=== PATIENT | female | born 1950 | race African-American/Black ===

== ENCOUNTER → 2016-12-10 | Outpatient (CLI) | payer MEDICARE, MEDICAID ==
[~2016-12-10] MED LIST: ASPI-518 PO; CLON0.1T; CLON0.1T PO; CLOP75TA2 PO; FAMO20TA96 PO; FURO-151 PO; LISI40TA4 PO; METO50TA95 PO; POTA20TA82 PO
== END | disposition home or self-care (01) ==
LOC: MAMMO 09:30
PROVIDERS: ATTEND Internal Medicine Nephrology
DX: Z12.31 Encounter for screening mammogram for malignant neoplasm of breast (principal)
CPT/HCPCS: G0202

== ENCOUNTER → 2017-12-13 | Outpatient (CLI) | payer MEDICARE, MEDICAID ==
[~2017-12-13] MED LIST changes: +CLOP75TA16 PO; -CLOP75TA2 PO; +FAMO-135 PO; -FAMO20TA96 PO
== END | disposition home or self-care (01) ==
LOC: RAD 08:18
PROVIDERS: ATTEND Internal Medicine Nephrology
DX: Z12.31 Encounter for screening mammogram for malignant neoplasm of breast (principal)
CPT/HCPCS: 77067

== ENCOUNTER → 2019-01-09 | Outpatient (CLI) | payer MEDICARE, MEDICAID ==
[~2019-01-09] MED LIST changes: -CLOP75TA16 PO; +CLOP75TA4 PO
== END | disposition home or self-care (01) ==
LOC: MAMMO 09:18
PROVIDERS: ATTEND Internal Medicine Nephrology
DX: Z12.31 Encounter for screening mammogram for malignant neoplasm of breast (principal)
CPT/HCPCS: 77067

== ENCOUNTER 2019-08-27 15:20 | Inpatient (IN) | payer MEDICARE, MEDICAID ==
[~2019-08-27] VITALS: Ht 167.6 cm; Wt 79.4 kg
[2019-08-27] MEDS ORDERED: MORPHINE SULFATE 4 MG/ML CPJ (NOT FOR IM USE) IV ONE (16:15)
[2019-08-27] MEDS ORDERED: ONDANSETRON HCL 4MG/2ML INJ IV ONE (16:15)
[2019-08-27 16:28] LABS: HEMATOCRIT. 33.4 % (36.0-48.0); HEMOGLOBIN. 10.9 g/dL (12.0-16.0); MEAN CORPUSCULAR HEMOGLOBIN 25.7 pg (28.0-32.0); MEAN CORPUSCULAR VOLUME 78.9 fL (81.0-99.0); MEAN PLATELET VOLUME 7.9 fl (7.4-10.4); PLATELET 345 x1000/uL (130-400); RED BLOOD CELL COUNT 4.23 mill/uL (4.2-5.4); RED CELL DISTRIBUTION WIDTH 14.4 % (11.6-14.6)
[2019-08-27 16:34] LABS: CHLORIDE 106 mEq/L (98-107)
[2019-08-27 16:37] LABS: INR 1.1; PROTHROMBIN TIME 11.9 sec (9.6-11.0)
[2019-08-27 17:07] LABS: CLARITY URINE CLOUDY (CLEAR); COLOR URINE DARK YELLOW (YELLOW); KETONES URINE TRACE (NEGATIVE); LEUKOCYTE ESTERASE URINE 2+ (NEGATIVE); NITRITE URINE NEGATIVE (NEGATIVE); OCCULT BLOOD URINE NEGATIVE (NEGATIVE); PH URINE 5.5 (4.5-8.0); PROTEIN URINE 1+ (NEGATIVE); SPECIFIC GRAVITY URINE 1.015 (1.005-1.030)
[2019-08-27 17:17] LABS: PLATELET ESTIMATE NORMAL
[2019-08-27] MEDS ORDERED: SODIUM CHLORIDE 0.9% 1,000 ML IV ONE (20:45)
[2019-08-27] MEDS ORDERED: PIPERACILLIN/TAZ 3.375G PREMIX 50 ML IV ONE (20:45)
[2019-08-27] MEDS ORDERED: SODIUM CHLORIDE 0.9% 500 ML IV ONE (20:45)
[2019-08-27] MEDS ORDERED: LORAZEPAM 2MG/ML CPJ IV PRN (23:30)
[2019-08-27] MEDS ORDERED: ONDANSETRON HCL 4MG/2ML INJ IV PRN (23:30)
[2019-08-27] MEDS ORDERED: ACETAMINOPHEN 650MG/20.3ML UDC GT PRN (23:30)
[2019-08-27] MEDS ORDERED: IPRATROPIUM/ALBUTEROL 0.5-3(2.5)MG/3ML NEB NEB PRN (23:30)
[2019-08-27] MEDS ORDERED: POTASSIUM CHLORIDE 20MEQ TABLET SR PO SCH (23:30)
[2019-08-28] VITALS (7 sets, daily range): BP systolic 115–169; BP diastolic 56–99
[2019-08-28] MEDS: MORPHINE SULFATE 2 MG/ML CPJ (NOT FOR IM USE) IV PRN ×2 (01:44→19:06)
[2019-08-28] MEDS ORDERED: CEFTRIAXONE 1 G PREMIX 50 ML IV SCH (02:00)
[2019-08-28] MEDS ORDERED: CLON0.1T PO (04:08)
[2019-08-28] MEDS ORDERED: POTA20TA82 PO (04:09)
[2019-08-28] MEDS ORDERED: ATOR10TA69 PO (04:24)
[2019-08-28] MEDS ORDERED: NEBI20TA2 PO (04:24)
[2019-08-28] MEDS ORDERED: METO2.5T14 PO (04:24)
[2019-08-28] MEDS ORDERED: LOSA100T32 PO (04:24)
[2019-08-28 06:42] LABS: BASOPHILS % 0.4 % (0.0-2.0); EOSINOPHILS % 0.7 % (0.0-5.0); HEMATOCRIT. 29.5 % (36.0-48.0); HEMOGLOBIN. 9.7 g/dL (12.0-16.0); LYMPHOCYTES % 8.1 % (20.0-50.0); MEAN CORPUSCULAR HEMOGLOBIN 25.8 pg (28.0-32.0); MEAN CORPUSCULAR VOLUME 78.4 fL (81.0-99.0); MEAN PLATELET VOLUME 7.5 fl (7.4-10.4); MONOCYTES % 8.6 % (2.0-8.0); NEUTROPHILS % 82.2 % (40.0-76.0); PLATELET 310 x1000/uL (130-400); RED BLOOD CELL COUNT 3.76 mill/uL (4.2-5.4); RED CELL DISTRIBUTION WIDTH 14.2 % (11.6-14.6)
[2019-08-28] MEDS: HYDROCODONE/ACETAMINOPHEN 5/325MG TABLET PO PRN (06:48)
[2019-08-28 07:05] LABS: CHLORIDE 108 mEq/L (98-107)
[2019-08-28 07:11] LABS: PHOSPHORUS 3.4 mg/dL (2.5-4.9)
[2019-08-28 07:15] LABS: CREATINE KINASE 173 IU/L (26-192)
[2019-08-28 07:16] LABS: CREATINE KINASE MB FRACTION 1.2 ng/mL (0.5-3.6)
[2019-08-28] MEDS: ASPIRIN 81MG EC TABLET PO SCH (09:27)
[2019-08-28] MEDS: POTASSIUM CHLORIDE 20MEQ TABLET SR PO SCH (09:27)
[2019-08-28] MEDS: FUROSEMIDE 40MG/4ML VIAL IV SCH (09:27)
[2019-08-28] MEDS: ENOXAPARIN 40MG/0.4ML SYR SUBCUT SCH (09:28)
[2019-08-28] MEDS: LISINOPRIL 20MG TABLET PO SCH (09:28)
[2019-08-28] MEDS ORDERED: LEVOFLOXACIN 500MG PREMIX 100 ML IV SCH ×2 (09:45→11:00)
[2019-08-28] MEDS: METRONIDAZOLE 500 MG PREMIX 100 ML IV SCH ×2 (14:01→21:28)
[2019-08-28 16:52] LABS: CREATINE KINASE MB FRACTION 1.3 ng/mL (0.5-3.6)
[2019-08-29] VITALS (7 sets, daily range): BP systolic 136–198; BP diastolic 86–111
[2019-08-29] MEDS: HYDROCODONE/ACETAMINOPHEN 5/325MG TABLET PO PRN ×2 (00:09→08:35)
[2019-08-29] MEDS: CLONIDINE 0.1MG TABLET PO SCH ×4 (00:49→23:02)
[2019-08-29] MEDS: METRONIDAZOLE 500 MG PREMIX 100 ML IV SCH ×3 (05:11→21:37)
[2019-08-29 06:59] LABS: BASOPHILS % 0.4 % (0.0-2.0); EOSINOPHILS % 0.2 % (0.0-5.0); HEMATOCRIT. 31.8 % (36.0-48.0); HEMOGLOBIN. 10.3 g/dL (12.0-16.0); LYMPHOCYTES % 8.3 % (20.0-50.0); MEAN CORPUSCULAR HEMOGLOBIN 25.5 pg (28.0-32.0); MEAN CORPUSCULAR VOLUME 78.9 fL (81.0-99.0); MEAN PLATELET VOLUME 7.7 fl (7.4-10.4); MONOCYTES % 7.8 % (2.0-8.0); NEUTROPHILS % 83.3 % (40.0-76.0); PLATELET 310 x1000/uL (130-400); RED BLOOD CELL COUNT 4.02 mill/uL (4.2-5.4); RED CELL DISTRIBUTION WIDTH 14.1 % (11.6-14.6)
[2019-08-29] MEDS: ENOXAPARIN 40MG/0.4ML SYR SUBCUT SCH (08:34)
[2019-08-29] MEDS: LISINOPRIL 20MG TABLET PO SCH ×2 (08:36→21:38)
[2019-08-29] MEDS: POTASSIUM CHLORIDE 20MEQ TABLET SR PO SCH (08:36)
[2019-08-29] MEDS: ASPIRIN 81MG EC TABLET PO SCH (08:36)
[2019-08-29] MEDS: FUROSEMIDE 40MG/4ML VIAL IV SCH (09:35)
[2019-08-29] MEDS: LEVOFLOXACIN 250MG PREMIX 50 ML IV SCH (12:39)
[2019-08-29] MEDS: LACTULOSE 20G/30ML UDC PO SCH (16:59)
[2019-08-29] MEDS: METOPROLOL TARTRATE 50MG TABLET PO SCH (21:39)
[2019-08-30] VITALS: BP 150/98
[2019-08-30 04:00] VITALS: BP 151/94
[2019-08-30] MEDS: METRONIDAZOLE 500 MG PREMIX 100 ML IV SCH ×3 (04:26→20:55)
[2019-08-30 06:06] LABS: BASOPHILS % 0.6 % (0.0-2.0); EOSINOPHILS % 2.9 % (0.0-5.0); HEMATOCRIT. 30.7 % (36.0-48.0); HEMOGLOBIN. 10.2 g/dL (12.0-16.0); LYMPHOCYTES % 14.9 % (20.0-50.0); MEAN CORPUSCULAR HEMOGLOBIN 26.2 pg (28.0-32.0); MEAN CORPUSCULAR VOLUME 78.8 fL (81.0-99.0); MEAN PLATELET VOLUME 7.8 fl (7.4-10.4); MONOCYTES % 7.6 % (2.0-8.0); PLATELET 323 x1000/uL (130-400); RED BLOOD CELL COUNT 3.89 mill/uL (4.2-5.4); RED CELL DISTRIBUTION WIDTH 14.4 % (11.6-14.6)
[2019-08-30] MEDS: CLONIDINE 0.1MG TABLET PO SCH ×3 (06:40→22:45)
[2019-08-30 08:00] VITALS: BP 123/83
[2019-08-30] MEDS: FUROSEMIDE 40MG/4ML VIAL IV SCH (09:00)
[2019-08-30] MEDS: LACTULOSE 20G/30ML UDC PO SCH ×3 (09:00→17:00)
[2019-08-30] MEDS: ASPIRIN 81MG EC TABLET PO SCH (09:40)
[2019-08-30] MEDS: POTASSIUM CHLORIDE 20MEQ TABLET SR PO SCH (09:40)
[2019-08-30] MEDS: METOPROLOL TARTRATE 50MG TABLET PO SCH ×2 (09:41→20:55)
[2019-08-30] MEDS: ENOXAPARIN 40MG/0.4ML SYR SUBCUT SCH (09:42)
[2019-08-30] MEDS: LISINOPRIL 20MG TABLET PO SCH ×2 (09:42→20:55)
[2019-08-30 12:00] VITALS: BP 140/99
[2019-08-30] MEDS: LEVOFLOXACIN 250MG PREMIX 50 ML IV SCH (12:00)
[2019-08-30 16:00] VITALS: BP 150/82
[2019-08-30 20:00] VITALS: BP 129/89
[2019-08-31] VITALS: BP 159/95
[2019-08-31 04:00] VITALS: BP 149/80
[2019-08-31] MEDS: METRONIDAZOLE 500 MG PREMIX 100 ML IV SCH (04:58)
[2019-08-31] MEDS: CLONIDINE 0.1MG TABLET PO SCH (05:13)
[2019-08-31] MEDS: LACTULOSE 20G/30ML UDC PO SCH (09:00)
[2019-08-31] MEDS: METOPROLOL TARTRATE 50MG TABLET PO SCH (09:00)
[2019-08-31] MEDS: ASPIRIN 81MG EC TABLET PO SCH (09:59)
[2019-08-31] MEDS: POTASSIUM CHLORIDE 20MEQ TABLET SR PO SCH (10:00)
[2019-08-31] MEDS: LISINOPRIL 20MG TABLET PO SCH (10:10)
[2019-08-31] MEDS: ENOXAPARIN 40MG/0.4ML SYR SUBCUT SCH (10:11)
[2019-08-31] MEDS: FUROSEMIDE 40MG/4ML VIAL IV SCH (10:12)
[2019-08-31] MEDS ORDERED: LEVO500T2 MT (10:48)
[2019-08-31] MEDS ORDERED: METR500T MT (10:48)
[2019-08-31 11:49] VITALS: BP 185/97
[2019-08-31 13:42] VITALS: BP 145/80
== END 2019-08-31 14:40 | disposition home or self-care (01) | DRG 871 ==
LOC: ER 15:20 → 5WST 20:50 → EDBEDREQSVC 20:55 → EDBEDREQ 20:55 → EDBEDREQTM 20:55 → ENRESERV 23:04
PROVIDERS: ADMIT Internal Medicine Nephrology; ATTEND Internal Medicine Nephrology
DX: A41.9 Sepsis, unspecified organism (principal); I50.33 Acute on chronic diastolic (congestive) heart failure; E87.1 Hypo-osmolality and hyponatremia; K57.92 Diverticulitis of intestine, part unspecified, without perforation or abscess without bleeding; N39.0 Urinary tract infection, site not specified; D50.9 Iron deficiency anemia, unspecified; E78.5 Hyperlipidemia, unspecified; E87.6 Hypokalemia; I11.0 Hypertensive heart disease with heart failure; E78.00 Pure hypercholesterolemia, unspecified; I27.20 Pulmonary hypertension, unspecified; K59.00 Constipation, unspecified; Z86.73 Personal history of transient ischemic attack (TIA), and cerebral infarction without residual deficits; Z88.5 Allergy status to narcotic agent; Z79.82 Long term (current) use of aspirin; Z79.899 Other long term (current) drug therapy
CPT/HCPCS: 36415; 71045; 74176; 80048; 80053; 81003; 82550; 82553; 82728; 83540; 83550; 83605; 83735; 83880; 84100; 84145; 84484; 85025; 93005; 93306; 99291; J0696; J1650; J1940; J1956; J2270; J2405; J2543; J3490; J7030; J7040

== ENCOUNTER → 2020-02-05 | Outpatient (CLI) | payer MEDICARE, MEDICAID ==
[~2020-02-05] MED LIST changes: -ASPI-518 PO; +ATOR10TA69 PO; -CLON0.1T; -CLOP75TA4 PO; -FAMO-135 PO; +LEVO500T2 MT; -LISI40TA4 PO; +LOSA100T32 PO; +METO2.5T14 PO; -METO50TA95 PO; +METR500T MT; +NEBI20TA2 PO
== END | disposition home or self-care (01) ==
LOC: LAB 11:12
PROVIDERS: ATTEND Internal Medicine Nephrology
DX: Z11.59 Encounter for screening for other viral diseases (principal)
CPT/HCPCS: C9803; U0003

== ENCOUNTER → 2020-02-07 | Outpatient (CLI) | payer MEDICARE, MEDICAID | END | disposition home or self-care (01) | LOC: MAMMO 11:38 | PROVIDERS: ATTEND Internal Medicine Nephrology | DX: Z12.31 Encounter for screening mammogram for malignant neoplasm of breast (principal) | CPT/HCPCS: 77067 ==

== ENCOUNTER 2021-03-26 14:41 | Emergency (ER) | payer MEDICAID, MEDICARE ==
[~2021-03-26] VITALS: Ht 167.6 cm; Wt 70.0 kg
[~2021-03-26 14:41] MED LIST changes: -METO2.5T14 PO; +METO2.5T2 PO
[2021-03-26] MEDS ORDERED: SODIUM CHLORIDE 0.9% 1,000 ML IV ONE (15:15)
[2021-03-26 15:43] LABS: BASOPHILS % 0.6 % (0.0-2.0); EOSINOPHILS % 1.9 % (0.0-5.0); HEMATOCRIT. 42.7 % (36.0-48.0); LYMPHOCYTES % 27.5 % (20.0-50.0); MEAN CORPUSCULAR HEMOGLOBIN 27.5 pg (28.0-32.0); MEAN CORPUSCULAR VOLUME 83.7 fL (81.0-99.0); MEAN PLATELET VOLUME 7.9 fl (7.4-10.4); MONOCYTES % 8.3 % (2.0-8.0); NEUTROPHILS % 61.7 % (40.0-76.0); PLATELET 249 x1000/uL (130-400); RED CELL DISTRIBUTION WIDTH 13.8 % (11.6-14.6)
[2021-03-26 15:48] LABS: CHLORIDE 109 mEq/L (98-107)
[2021-03-26 17:29] LABS: CLARITY URINE CLEAR (CLEAR); COLOR URINE YELLOW (YELLOW); KETONES URINE NEGATIVE (NEGATIVE); LEUKOCYTE ESTERASE URINE 2+ (NEGATIVE); NITRITE URINE NEGATIVE (NEGATIVE); OCCULT BLOOD URINE NEGATIVE (NEGATIVE); PROTEIN URINE TRACE (NEGATIVE); SPECIFIC GRAVITY URINE 1.008 (1.005-1.030); UROBILINOGEN URINE 0.2 E.U./dL (0.2-1.0)
[2021-03-26] MEDS ORDERED: CEPH250C2 MT (18:08)
[2021-03-26 18:38] VITALS: BP 164/78
== END 2021-03-26 18:39 | disposition home or self-care (01) ==
LOC: ER 14:56
DX: I10 Essential (primary) hypertension (principal); N39.0 Urinary tract infection, site not specified; Z91.81 History of falling; E78.00 Pure hypercholesterolemia, unspecified; I69.351 Hemiplegia and hemiparesis following cerebral infarction affecting right dominant side
CPT/HCPCS: 36415; 70450; 71045; 80053; 81003; 84484; 85025; 93005; 96360; 96361; 99285; J7030

== ENCOUNTER 2022-05-19 11:39 | Inpatient (IN) | payer MEDICARE, OTHER ==
[~2022-05-19] VITALS: Ht 167.6 cm; Wt 75.4 kg
[~2022-05-19 11:39] MED LIST changes: +CEPH250C2 MT; +POTA-205 PO; -POTA20TA82 PO
[2022-05-19 13:58] LABS: BASOPHILS % 0.5 % (0.0-2.0); EOSINOPHILS % 1.5 % (0.0-5.0); HEMATOCRIT. 39.4 % (36.0-48.0); HEMOGLOBIN. 12.9 g/dL (12.0-16.0); LYMPHOCYTES % 30.5 % (20.0-50.0); MEAN CORPUSCULAR HEMOGLOBIN 27.3 pg (28.0-32.0); MEAN CORPUSCULAR VOLUME 83.3 fL (81.0-99.0); MONOCYTES % 10.5 % (2.0-8.0); PLATELET 230 x1000/uL (130-400); RED BLOOD CELL COUNT 4.73 mill/uL (4.2-5.4); RED CELL DISTRIBUTION WIDTH 13.8 % (11.6-14.6)
[2022-05-19 14:44] LABS: CLARITY URINE CLEAR (CLEAR); COLOR URINE YELLOW (YELLOW); KETONES URINE NEGATIVE (NEGATIVE); LEUKOCYTE ESTERASE URINE 1+ (NEGATIVE); NITRITE URINE NEGATIVE (NEGATIVE); OCCULT BLOOD URINE NEGATIVE (NEGATIVE); PH URINE 6.5 (4.5-8.0); PROTEIN URINE 2+ (NEGATIVE); SPECIFIC GRAVITY URINE 1.016 (1.005-1.030)
[2022-05-19] MEDS ORDERED: CLONIDINE 0.1MG TABLET PO ONE (15:00)
[2022-05-19] MEDS: NEBIVOLOL HCL 5 MG TABLET PO SCH (15:23)
[2022-05-19] MEDS ORDERED: HYDRALAZINE 20MG/ML VIAL IV NR (19:00)
[2022-05-19 20:46] LABS: CHLORIDE 106 mEq/L (98-107)
[2022-05-19 21:13] LABS: CHLORIDE 106 mEq/L (98-107)
[2022-05-19 21:58] LABS: VITAMIN B12 SERUM 866 pg/mL (211-911)
[2022-05-19] MEDS ORDERED: HYDROCODONE/ACETAMINOPHEN 5/325MG TABLET PO PRN (22:15)
[2022-05-19] MEDS ORDERED: MINOXIDIL 2.5MG TABLET PO NR (22:45)
[2022-05-20] MEDS ORDERED: NALOXONE HCL 0.4MG/ML VIAL IV PRN (12:45)
[2022-05-20 13:30] VITALS: BP 169/96
[2022-05-20] MEDS ORDERED: AMLODIPINE 5MG TABLET PO SCH (13:30)
[2022-05-20] MEDS ORDERED: POTASSIUM CHLORIDE 20MEQ TABLET SR PO NR (15:00)
[2022-05-20] MEDS ORDERED: MECLIZINE 25MG TABLET PO PRN (15:00)
[2022-05-20] MEDS: NEBIVOLOL HCL 5 MG TABLET PO SCH (15:11)
[2022-05-20] MEDS: ASPIRIN 81MG TABLET PO SCH (15:12)
[2022-05-20] MEDS ORDERED: ACETAMINOPHEN 325MG TABLET PO PRN (15:45)
[2022-05-20 16:00] VITALS: BP_SYST 176; BP_DIAS 100; BP_DIAS 95
[2022-05-20 18:00] VITALS: BP_SYST 174; BP_SYST 187; BP_DIAS 100; BP_DIAS 116
[2022-05-20 20:00] VITALS: BP 162/98
[2022-05-20 21:01] LABS: BASOPHILS % 0.5 % (0.0-2.0); EOSINOPHILS % 0.4 % (0.0-5.0); HEMATOCRIT. 41.1 % (36.0-48.0); HEMOGLOBIN. 13.7 g/dL (12.0-16.0); LYMPHOCYTES % 15.1 % (20.0-50.0); MEAN CORPUSCULAR HEMOGLOBIN 27.8 pg (28.0-32.0); MEAN CORPUSCULAR VOLUME 83.4 fL (81.0-99.0); PLATELET 242 x1000/uL (130-400); RED BLOOD CELL COUNT 4.93 mill/uL (4.2-5.4); RED CELL DISTRIBUTION WIDTH 14.1 % (11.6-14.6)
[2022-05-20] MEDS: CLONIDINE 0.1MG TABLET PO PRN (22:01)
[2022-05-20] MEDS ORDERED: INFLUENZA VACCINE 05/PF 0.5 ML SYRINGE IM ONE (22:30)
[2022-05-20] MEDS ORDERED: PNEUMOCOCCAL 23-VAL P-SAC VAC 0.5 ML IM ONE (22:30)
[2022-05-21] VITALS: BP 167/98
[2022-05-21] MEDS ORDERED: AMLODIPINE 5MG TABLET PO SCH (01:00)
[2022-05-21] MEDS: AMLODIPINE 5MG TABLET PO SCH ×3 (01:22→17:13)
[2022-05-21 04:00] VITALS: BP 154/93
[2022-05-21 07:46] LABS: BASOPHILS % 0.4 % (0.0-2.0); EOSINOPHILS % 0.9 % (0.0-5.0); HEMATOCRIT. 40.8 % (36.0-48.0); HEMOGLOBIN. 13.6 g/dL (12.0-16.0); LYMPHOCYTES % 21.4 % (20.0-50.0); MEAN CORPUSCULAR HEMOGLOBIN 27.4 pg (28.0-32.0); MEAN CORPUSCULAR VOLUME 82.5 fL (81.0-99.0); MEAN PLATELET VOLUME 8.1 fl (7.4-10.4); MONOCYTES % 11.8 % (2.0-8.0); NEUTROPHILS % 65.5 % (40.0-76.0); PLATELET 248 x1000/uL (130-400); RED BLOOD CELL COUNT 4.94 mill/uL (4.2-5.4); RED CELL DISTRIBUTION WIDTH 13.7 % (11.6-14.6)
[2022-05-21 08:00] VITALS: BP_SYST 159; BP_SYST 160; BP_SYST 164; BP_DIAS 77; BP_DIAS 79; BP_DIAS 80
[2022-05-21] MEDS: ASPIRIN 81MG TABLET PO SCH (09:25)
[2022-05-21 12:00] VITALS: BP_SYST 167; BP_SYST 168; BP_SYST 174; BP_DIAS 100; BP_DIAS 106; BP_DIAS 95
[2022-05-21] MEDS: CLONIDINE 0.1MG TABLET PO PRN ×2 (12:11→21:50)
[2022-05-21] MEDS: NEBIVOLOL HCL 5 MG TABLET PO SCH (15:20)
[2022-05-21 16:00] VITALS: BP 160/99
[2022-05-21] MEDS ORDERED: POTASSIUM CHLORIDE 20MEQ TABLET SR PO NR (16:45)
[2022-05-21] MEDS ORDERED: LACTULOSE 20G/30ML UDC PO NR (16:45)
[2022-05-21 20:00] VITALS: BP 199/144
[2022-05-21] MEDS: ATORVASTATIN CALCIUM 40MG TABLET PO SCH (20:49)
[2022-05-22] VITALS (7 sets, daily range): BP systolic 135–170; BP diastolic 83–100
[2022-05-22] MEDS: CLONIDINE 0.1MG TABLET PO PRN ×2 (05:35→16:31)
[2022-05-22] MEDS: ASPIRIN 81MG TABLET PO SCH (09:36)
[2022-05-22] MEDS: AMLODIPINE 5MG TABLET PO SCH ×2 (09:36→16:31)
[2022-05-22] MEDS: ATORVASTATIN CALCIUM 40MG TABLET PO SCH (21:36)
[2022-05-23] VITALS: BP 138/76
[2022-05-23 04:00] VITALS: BP 168/90
[2022-05-23] MEDS: CLONIDINE 0.1MG TABLET PO PRN ×2 (04:53→13:13)
[2022-05-23 08:00] VITALS: BP 139/87
[2022-05-23] MEDS: ASPIRIN 81MG TABLET PO SCH (09:13)
[2022-05-23] MEDS: AMLODIPINE 5MG TABLET PO SCH ×2 (09:13→18:01)
[2022-05-23 10:09] VITALS: BP_SYST 135; BP_SYST 138; BP_DIAS 97
[2022-05-23 12:00] VITALS: BP 181/98
[2022-05-23 17:49] VITALS: BP 188/188
== END 2022-05-23 18:55 | DRG 65 ==
LOC: ER 11:39 → MICUSO 16:36 → EDBEDREQSVC 18:53 → 7EST 05-20 12:21
PROVIDERS: ADMIT Internal Medicine; ATTEND Internal Medicine
PROC: 4A00X4Z Measurement of Central Nervous Electrical Activity, External Approach (ICD-10-PCS; principal; 2022-05-21)
DX: I63.81 Other cerebral infarction due to occlusion or stenosis of small artery (principal); G93.40 Encephalopathy, unspecified; I69.351 Hemiplegia and hemiparesis following cerebral infarction affecting right dominant side; Z20.822 Contact with and (suspected) exposure to COVID-19; R27.0 Ataxia, unspecified; R29.6 Repeated falls; I10 Essential (primary) hypertension; E78.5 Hyperlipidemia, unspecified; E78.00 Pure hypercholesterolemia, unspecified; E87.6 Hypokalemia; F03.90 Unspecified dementia, unspecified severity, without behavioral disturbance, psychotic disturbance, mood disturbance, and anxiety; Z88.8 Allergy status to other drugs, medicaments and biological substances
CPT/HCPCS: 36415; 70551; 71045; 80048; 80053; 80061; 81003; 82607; 83036; 83735; 84443; 84481; 85025; 87426; 90686; 90732; 93306; 93880; 95816; 97162; 99285; J0360

== ENCOUNTER 2022-06-01 18:16 | Inpatient (IN) | payer OTHER ==
[~2022-06-01] VITALS: Ht 167.6 cm; Wt 76.2 kg
[2022-06-01] MEDS ORDERED: SODIUM CHLORIDE 0.9% 1,000 ML IV ONE (18:45)
[2022-06-01 19:59] LABS: BASOPHILS % 0.1 % (0.0-2.0); EOSINOPHILS % 0.7 % (0.0-5.0); HEMATOCRIT. 35.3 % (36.0-48.0); HEMOGLOBIN. 11.8 g/dL (12.0-16.0); LYMPHOCYTES % 19.2 % (20.0-50.0); MEAN CORPUSCULAR HEMOGLOBIN 27.7 pg (28.0-32.0); MEAN CORPUSCULAR VOLUME 83.1 fL (81.0-99.0); MEAN PLATELET VOLUME 8.3 fl (7.4-10.4); MONOCYTES % 10.5 % (2.0-8.0); NEUTROPHILS % 69.5 % (40.0-76.0); PLATELET 254 x1000/uL (130-400); RED BLOOD CELL COUNT 4.25 mill/uL (4.2-5.4); RED CELL DISTRIBUTION WIDTH 13.6 % (11.6-14.6)
[2022-06-01 20:00] LABS: CHLORIDE 101 mEq/L (98-107)
[2022-06-01] MEDS ORDERED: POTASSIUM CHLORIDE 20MEQ TABLET SR PO ONE (20:30)
[2022-06-01] MEDS ORDERED: KCL 20MEQ/100ML PREMIX 100 ML IV ONE (20:30)
[2022-06-01] MEDS ORDERED: ASPIRIN 81MG TABLET PO ONE (22:00)
[2022-06-01] MEDS ORDERED: POTASSIUM CHLORIDE 20MEQ TABLET SR PO NR (22:45)
[2022-06-02] MEDS ORDERED: SODIUM CHLORIDE 0.45% 1,000 ML IV SCH (09:00)
[2022-06-02] MEDS: ENOXAPARIN 30MG/0.3ML SYR SUBCUT SCH (10:41)
[2022-06-02] MEDS: ASPIRIN 81MG TABLET PO SCH (10:41)
[2022-06-02 13:00] VITALS: BP 131/93
[2022-06-02] MEDS ORDERED: POTASSIUM CHLORIDE 20MEQ TABLET SR PO NR (15:15)
[2022-06-02 16:00] VITALS: BP 139/85
[2022-06-02 19:37] LABS: CLARITY URINE CLOUDY (CLEAR); COLOR URINE YELLOW (YELLOW); KETONES URINE NEGATIVE (NEGATIVE); LEUKOCYTE ESTERASE URINE 2+ (NEGATIVE); NITRITE URINE NEGATIVE (NEGATIVE); OCCULT BLOOD URINE TRACE (NEGATIVE); PROTEIN URINE NEGATIVE (NEGATIVE); SPECIFIC GRAVITY URINE 1.013 (1.005-1.030); UROBILINOGEN URINE 0.2 E.U./dL (0.2-1.0)
[2022-06-02 20:00] VITALS: BP 141/108
[2022-06-02] MEDS ORDERED: ATORVASTATIN CALCIUM 40MG TABLET PO SCH (21:00)
[2022-06-03] VITALS: BP 158/104
[2022-06-03 04:00] VITALS: BP 141/75
[2022-06-03 08:00] VITALS: BP 148/98
[2022-06-03] MEDS: ENOXAPARIN 30MG/0.3ML SYR SUBCUT SCH (08:56)
[2022-06-03] MEDS: ASPIRIN 81MG TABLET PO SCH (08:56)
[2022-06-03 08:58] LABS: BASOPHILS % 0.2 % (0.0-2.0); EOSINOPHILS % 0.9 % (0.0-5.0); HEMATOCRIT. 33.5 % (36.0-48.0); HEMOGLOBIN. 11.3 g/dL (12.0-16.0); MEAN CORPUSCULAR HEMOGLOBIN 27.7 pg (28.0-32.0); MEAN CORPUSCULAR VOLUME 82.4 fL (81.0-99.0); MEAN PLATELET VOLUME 8.4 fl (7.4-10.4); MONOCYTES % 8.9 % (2.0-8.0); PLATELET 267 x1000/uL (130-400); RED BLOOD CELL COUNT 4.06 mill/uL (4.2-5.4); RED CELL DISTRIBUTION WIDTH 13.6 % (11.6-14.6)
[2022-06-03 12:00] VITALS: BP 157/98
[2022-06-03] MEDS ORDERED: POTASSIUM CHLORIDE 20MEQ TABLET SR PO NR (14:15)
[2022-06-03 16:00] VITALS: BP 142/86
[2022-06-03 16:46] VITALS: BP 148/98
[2022-06-04] MEDS ORDERED: ENOXAPARIN 40MG/0.4ML SYR SUBCUT SCH (09:00)
== END 2022-06-03 20:10 | DRG 640 ==
LOC: ER 18:16 → MICUSO 21:18 → 7EST 06-02 12:46
PROVIDERS: ADMIT Internal Medicine; ATTEND Internal Medicine
DX: E87.6 Hypokalemia (principal); N17.0 Acute kidney failure with tubular necrosis; I10 Essential (primary) hypertension; E78.00 Pure hypercholesterolemia, unspecified; F03.90 Unspecified dementia, unspecified severity, without behavioral disturbance, psychotic disturbance, mood disturbance, and anxiety; Z20.822 Contact with and (suspected) exposure to COVID-19; Z88.8 Allergy status to other drugs, medicaments and biological substances; Z79.899 Other long term (current) drug therapy; Z86.73 Personal history of transient ischemic attack (TIA), and cerebral infarction without residual deficits
CPT/HCPCS: 36415; 71045; 80048; 80053; 81003; 83735; 83880; 84484; 85025; 87426; 93005; 97162; 97166; 97535; 99291; J1650; J3480; J7030